=== PATIENT | male | born 1985 | race Caucasian/White ===

== ENCOUNTER 2020-02-02 14:52 | Emergency (ER) | payer MEDICAID, SELFPAY ==
--- NOTE | 2020-02-02 15:00 | ED.URI ---
HPI - URI/Sore Throat General Chief Complaint: Upper Respiratory Infection Stated Complaint: upper respiratory infection Time Seen by Provider: 02/02/20 15:03 Source: patient and RN notes reviewed Mode of arrival: ambulatory Limitations: no limitations History of Present Illness HPI Narrative: 34-year male presents with concern for 7-day history of nasal congestion, rhinorrhea with green discharge. Reports 1 week history of headache. Denies cough, sore throat, ear pain, body aches, chills, fever. Reports trying Benadryl and Tylenol. MD elicited complaint: nasal congestion Related Data Allergies Allergy/AdvReac Type Severity Reaction Status Date / Time haloperidol Allergy Unknown Unknown Verified 01/05/18 08:51 trazodone Allergy Unknown Verified 06/08/15 18:28 Review of Systems Review of Systems: Narrative: CONSTITUTIONAL: Denies malaise, chills, sweats, or fever. EYES: Denies visual changes, redness, or discharge. ENT: Reports rhinorrhea, congestion, sinus pain. Denies otalgia and sore throat. CARDIOVASCULAR: Denies chest pain, palpitations, or edema. RESPIRATORY: Denies cough or dyspnea. GASTROINTESTINAL: Denies abdominal pain, nausea, vomiting, diarrhea SKIN: Denies rash or itching. MUSCULOSKELETAL: Denies myalgia. NEUROLOGIC: Reports headache. All systems reviewed & are unremarkable except as noted in HPI and below PMFSH Comments At time of signature, agree with nursing past medical, surgical, social and family history. There is no relevant family history pertinent to the presenting complaint Exam Narrative: Exam Narrative: GENERAL: Well-appearing, well-nourished, and in no acute distress. HEAD: Normocephalic EYES: PERRLA, conjunctivae clear ENT: Nares clear, turbinates edematous and erythematous, green discharge, sinus tenderness. Mucous membranes moist. TM pearly sterling with dull light reflex bilaterally; no tragal tenderness. Oropharynx not erythematous without lesions. Tonsils not enlarged and without exudate, no drooling, no hoarseness, no trismus, uvula midline. NECK: Supple. No lymphadenopathy CHEST: Clear to auscultation, breath sounds equal. No wheezing, rhonchi, rales, or stridor. No respiratory distress, speaks in full sentences. HEART: Regular rate and rhythm. No murmur heard. SKIN: Warm, dry, no rash. NEURO: Alert and oriented x3. PSYCH: Normal mood and affect Course Course Emergency Course: Patient is aware of diagnosis, understands and agrees to treatment plan. Anticipatory guidance given. Patient agrees to follow-up as directed and is aware of reasons to seek care at the emergency department. Portions of this record may have been created with voice recognition software Vital Signs Vital signs: Vital Signs Temperature 99.1 F 02/02/20 15:03 Pulse Rate 57 L 02/02/20 15:03 Respiratory Rate 16 02/02/20 15:03 Blood Pressure 127/55 L 02/02/20 15:03 Pulse Oximetry 100 02/02/20 15:03 Temperature 99.1 F 02/02/20 15:03 Pulse Rate 57 L 02/02/20 15:03 Respiratory Rate 16 02/02/20 15:03 Blood Pressure 127/55 L 02/02/20 15:03 Pulse Oximetry 100 02/02/20 15:03 Reviewed. MDM - URI/Sore Throat MDM Narrative Medical decision making narrative: Differential diagnosis considered: Strep pharyngitis, allergic rhinitis, upper respiratory tract infection, sinusitis, rhinosinusitis, nasopharyngitis. viral pharyngitis, otitis media, otitis externa, pneumonia, bronchitis, viral cough syndrome, viral syndrome, and influenza. Exam findings show no acute concerns or changes; patient is non-toxic appearing and is in no distress. Patient is appropriate for outpatient treatment and follow-up. Critical Care Time Critical Care Time Critical Care Time: No Discharge Plan Discharge Clinical Impression: Acute bacterial sinusitis Patient Disposition: Home, Self-Care Condition: Stable Instructions: Antibiotic Form, Sinusitis (ED) Additional Instructions: Take medications as prescribed
[2020-02-02 15:03] VITALS: BP 127/55; PULSE 57; RESP 16; TEMP 37.3; O2SAT 100
== END 2020-02-02 15:17 | disposition home or self-care (01) ==
PROVIDERS: Emergency Provider Nurse Practitioner
DX: J01.80 Other acute sinusitis (principal); B96.89 Other specified bacterial agents as the cause of diseases classified elsewhere
CPT/HCPCS: 99213; G0463

== ENCOUNTER 2020-02-23 17:20 | Emergency (ER) | payer OTHER, SELFPAY ==
[2020-02-23 17:27] VITALS: BP 138/62; PULSE 67; RESP 16; TEMP 37.3; O2SAT 99
--- NOTE | 2020-02-23 17:28 | ED.URI ---
HPI - URI/Sore Throat General Chief Complaint: Upper Respiratory Infection Stated Complaint: Sinus Infection Time Seen by Provider: 02/23/20 17:29 Source: patient and RN notes reviewed Mode of arrival: ambulatory Limitations: no limitations History of Present Illness HPI Narrative: This is a 34 years old male presents to the office for an evaluation possible sinus infection. He said that his symptom has not changes for the last 2 to 3 weeks even with prescribed medication. His symptom has also not worsening since the beginning of the onset. He admits taking his medication as prescribed. He smoke about half a pack a day. Denies sick contact. He was seen here with similar symptoms about three weeks ago. HPI - URI/Sore Throat General Chief Complaint: Upper Respiratory Infection Stated Complaint: upper respiratory infection Time Seen by Provider: 02/02/20 15:03 Source: patient and RN notes reviewed Mode of arrival: ambulatory Limitations: no limitations History of Present Illness HPI Narrative: 34-year male presents with concern for 7-day history of nasal congestion, rhinorrhea with green discharge. Reports 1 week history of headache. Denies cough, sore throat, ear pain, body aches, chills, fever. Reports trying Benadryl and Tylenol. MD elicited complaint: nasal congestion Related Data Allergies Allergy/AdvReac Type Severity Reaction Status Date / Time haloperidol Allergy Unknown Unknown Verified 01/05/18 08:51 trazodone Allergy Unknown Verified 06/08/15 18:28 Review of Systems Review of Systems: Narrative: CONSTITUTIONAL: Denies fever, chills ENT:Reports sinus headache, nasal drainage with green discharge and throat pain. Denies ears pain. CARDIOVASCULAR: Denies chest pain RESPIRATORY: Denies dyspnea, cough GASTROINTESTINAL: Denies abdominal pain, nausea, vomiting SKIN: Denies rash MUSCULOSKELETAL: Denies acute back pain NEUROLOGIC: Denies lightheaded All other systems reviewed are negative, except as documented in HPI. PMFSH Social History Social History (Updated 02/23/20 @ 17:49 by GINGER Win) Social History: he is motivating to quite. Smoking status: Current every day smoker Comments At time of signature, I agree with nursing past medical, surgical, social and family history. There is no relevant family history pertinent to the presenting complaint. Exam Narrative: Exam Narrative: GENERAL: This is a well-nourished, well-developed patient, in no apparent distress. EARS: External ears normal, auditory canals clear and without drainage, TMs normal without perforation. Hearing grossly intact. NOSE: External nose normal with no obvious nasal discharge, nares appears erythema and edematous. THROAT: Mucous membranes moist, posterior pharynx note erythema/edematous with drainage. NECK: Neck supple, non-tender without lymphadenopathy, masses or thyromegaly. CARDIOVASCULAR: Regular rate and rhythm without murmurs, gallops, or rubs. RESPIRATORY: Clear to auscultation. Breath sounds equal bilaterally. No wheezes, rales, or rhonchi. GASTROINTESTINAL: Abdomen soft, non-tender, nondistended. Bowel sounds are active. No hepato-splenomegaly, or palpable masses. No guarding. SKIN: warm, intact with no suspicious lesions or rash, good texture and turgor. NEURO: awake, alert, and oriented to person, place and time. There were no obvious focal neurologic abnormalities. Steady gait Travis Coma Scale Eye Opening: Spontaneous 4 [place] Coma Scale Motor: Obeys Commands 6 [place] Coma Scale Verbal: Oriented 5 Course Vital Signs Vital signs: Vital Signs Temperature 99.2 F 02/23/20 17:27 Pulse Rate 67 02/23/20 17:27 Respiratory Rate 16 02/23/20 17:27 Blood Pressure 138/62 02/23/20 17:27 Pulse Oximetry 99 02/23/20 17:27 Temperature 99.2 F 02/23/20 17:27 Pulse Rate 67 02/23/20 17:27 Respiratory Rate 16 02/23/20 17:27 Blood Pressure 138/62 02/23/20 17:27 Pulse Oximetry 99 07
== END 2020-02-23 17:48 | disposition home or self-care (01) ==
PROVIDERS: Emergency Provider Nurse Practitioner
DX: J01.11 Acute recurrent frontal sinusitis (principal); F17.200 Nicotine dependence, unspecified, uncomplicated
CPT/HCPCS: 99213; G0463

== ENCOUNTER 2020-04-01 17:16 | Emergency (ER) | payer OTHER, SELFPAY ==
[2020-04-01 17:28] VITALS: BP 116/67; PULSE 71; RESP 16; TEMP 36.7; O2SAT 98
--- NOTE | 2020-04-01 17:36 | ED.GENADULT ---
HPI - General Adult General Chief complaint: Dental/Oral Stated complaint: tooth pain Time Seen by Provider: 04/01/20 17:36 Source: patient and RN notes reviewed Mode of arrival: ambulatory Limitations: no limitations History of Present Illness HPI narrative: 28-year-old male presents with complaints of left upper dental pain for the past 3 days. Tylenol and Anbesol gel with little to no relief. Denies any drainage. No fever. No jaw swelling. No neck swelling. No limitation with speaking or swallowing. Has history of dental caries. Has not seen a dentist recently. No dental trauma. No oral lesions. Exacerbating factors consist of chewing on eating and drinking cold items. Some relieving factors not eating on LT side and avoiding cold items. No dentures or bridges. Tolerating liquids well. The patient reports he have not been diagnosed with COVID-19. The patient reports he is not waiting for the results of a COVID-19 lab test. The patient reports he do not have fever, chills, weakness, fatigue, myalgia, or facial swelling. The patient reports he do not have a new or worsening cough or shortness of breath. Denies chest pain. The patient reports he do not have any rhinorrhea, congestion, sore throat, nausea, loss of taste, vomiting, abdominal pain, and diarrhea. Denies recent traveling. Denies concerns for COVID-19 or exposures been home with limited outdoor exposure except for essential household needs and return home. At this time, patient is not suspected of having COVID-19. Some parts of this dictation were generated by voice recognition software and may contain typographical and/or grammatical inaccuracies. Related Data Allergies Allergy/AdvReac Type Severity Reaction Status Date / Time haloperidol Allergy Unknown Unknown Verified 04/01/20 17:30 trazodone Allergy Unknown Stopped Verified 04/01/20 17:30 Breathing Review of Systems Review of Systems: Narrative: CONSTITUTIONAL: Denies fever, chills, sweats. EYES: Denies visual changes, redness, discharge. ENT: Denies rhinorrhea, congestion, sore throat, otalgia. Complains of LT upper dental pain. CARDIOVASCULAR: Denies chest pain, palpitations, edema. RESPIRATORY: Denies dyspnea, wheezing, cough. GASTROINTESTINAL: Denies abdominal pain, nausea, vomiting, diarrhea. GENITOURINARY: Denies dysuria, hematuria, abnormal discharge. SKIN: Denies rash or itching. MUSCULOSKELETAL: Denies acute back pain, joint pain, or myalgia. NEUROLOGIC: Denies numbness or focal weakness. PSYCHIATRIC: Denies anxiety or depression. All systems reviewed & are unremarkable except as noted in HPI and below. [facility] Past Medical History Medical History (Updated 04/07/20 @ 14:02 by GINGER Jenkins) Nicotine abuse Substance abuse in remission Surgical History Surgical History (Updated 04/07/20 @ 14:02 by GINGER Jenkins) No significant past surgical history Family History Family History (Updated 04/07/20 @ 14:05 by GINGER Jenkins) Father Rheumatoid arthritis Mother Leukemia Social History Social History (Updated 04/07/20 @ 14:07 by GINGER Jenkins) Social History: he is motivating to quite. Smoking status: Current every day smoker Tobacco type: e-cigarettes/vaping Alcohol intake: former Substance use: former Substance use type: opiates Living arrangements: with family Occupation/Education: unemployed Gender identity (if verbalized by the patient): Male Sexual Orientation (if Verbalized by the Patient): Straight or Heterosexual Comments At time of signature, agree with nurse past medical, surgical, social, and family history. There is no relevant family history pertinent to the presenting complaint. Exam Narrative: Exam Narrative: GENERAL: This is a well-nourished, well-developed patient, in no apparent distress. Talks in full sentences ans ambulates with steady gait without dyspnea. HEAD: normoceph
== END 2020-04-01 17:49 | disposition home or self-care (01) ==
PROVIDERS: Emergency Provider Nurse Practitioner Family
DX: K02.9 Dental caries, unspecified (principal); K08.89 Other specified disorders of teeth and supporting structures; F17.200 Nicotine dependence, unspecified, uncomplicated
CPT/HCPCS: 99213; G0463

== ENCOUNTER 2025-01-25 15:50 | Emergency (ER) | payer OTHER, SELFPAY ==
[2025-01-25 16:01] VITALS: BP 134/72; PULSE 63; RESP 18; TEMP 37; O2SAT 99
--- NOTE | 2025-01-25 16:03 | ED_ITS ---
HPI - General Adult General Chief complaint: Eye Problems Stated complaint: Eye Irritation Source: patient Mode of arrival: ambulatory Limitations: no limitations History of Present Illness HPI narrative: Patient presents for evaluation of left eye irritation for the last 2 days. He was weed eating two days ago at which time a foreign object hit him in the left eye. He has noticed irritation in left eye since that time. Denies any pruritus, pain, discharge or change in vision. He does not wear glasses or contacts. Related Data Home Medications ?Medication ?Instructions ?Recorded ?Confirmed ?Last Taken ?Type prasterone (DHEA) 50 mg capsule 50 mg PO DAILY 01/25/25 Unknown History (DHEA) testosterone (AndroGel) 20.25 mg topical DAILY 01/25/25 Unknown History Allergies Allergy/AdvReac Type Severity Reaction Status Date / Time haloperidol Allergy Unknown Unknown Verified 01/25/25 16:06 trazodone Allergy Unknown Stopped Verified 01/25/25 16:06 Breathing Review of Systems Review of Systems: CONSTITUTIONAL: Denies fever, chills, or sweats. EYES: reports left eye irritation. Denies visual changes, pain, itching, redness, or discharge. ENT: Denies rhinorrhea, congestion, sore throat, or otalgia. CARDIOVASCULAR: Denies chest pain, palpitations, or edema. RESPIRATORY: Denies cough or dyspnea. GASTROINTESTINAL: Denies abdominal pain, nausea, vomiting, or diarrhea. GENITOURINARY: Denies dysuria or hematuria. SKIN: Denies rash or itching. MUSCULOSKELETAL: Denies back pain, joint pain, or myalgia. NEUROLOGIC: Denies headache, numbness, dizziness, or weakness. PSYCHIATRIC: Denies anxiety or depression. [facility] Past Medical History Medical History Nicotine abuse Substance abuse in remission Surgical History Surgical History No significant past surgical history Family History Family History Father Rheumatoid arthritis Mother Leukemia Social History Social History Social History: he is motivating to quite. Smoking status: Current every day smoker Tobacco type: e-cigarettes/vaping Alcohol intake: former Substance use: former Substance use type: opiates Living arrangements: with family Occupation/Education: unemployed Gender identity (if verbalized by the patient): Male Sexual Orientation (if Verbalized by the Patient): Straight or Heterosexual Exam Narrative: GENERAL: Well-appearing, well-nourished, and in no acute distress. HEAD: Normocephalic, atraumatic. EYES: PERRLA and EOMI. There is tearing from the left eye. There is an area of dye uptake at the 9 o'clock position of the left eye when evaluated with fluorescein and Wood's lamp. There is no visible foreign body present in the eye ENT: Nares clear, no rhinorrhea or epistaxis. Mucous membranes moist. Oropharynx without tonsillar hypertrophy exudate or other lesions. Bilateral TMs pearly sterling nonbulging NECK: Supple. No adenopathy or masses. No carotid bruits or JVD CHEST: Clear to auscultation. No respiratory distress. No wheezes rales or rhonchi HEART: Regular rate and rhythm. No murmur heard. Normal peripheral pulses. ABDOMEN: Soft, nontender, nondistended, normal active bowel sounds. EXTREMITIES: Normal range of motion. No edema. SKIN: Warm, dry, no rash. NEURO: No focal deficits. Alert and oriented x3. PSYCH: Normal mood and affect. Course Course Emergency Course: This is a 39-year-old male who presented for evaluation of left eye irritation. With Wood's lamp evaluation corneal abrasion was visualized without foreign body present. Will discharge with erythromycin. Follow-up primary care provider and ophthalmology. Go to the emergency department for change in vision. Patient in agreement with plan of care Level of Care: Express Care Visit Vital Signs Vital signs: Vital Signs Temperature 37.0 C 01/25/25 16:01 Pulse Rate 63 01/25/25 16:01 Respiratory Rate 18 01/25/25 16:01 Blood Pressure 134/72 01/25/25 16:01 Pulse Oximetry 99 01/25/25 16:01 Oxygen Delivery Room Air 01/25/25 16:01 Temperature 37.0 C 01/25/25 16:01 Pulse Rate 63 01/25/25 16:01 Respiratory Rate 18 01/25/25 16:01 Blood Pressure 134/72 01/25/25 16:01 Pulse Oximetry 99 01/25/25 16:01 Oxygen Delivery Room Air 01/25/25 16:01 Medical Decision Making Vital Signs Vital Signs: Vital Signs Temperature 37.0 C 01/25/25 16:01 Pulse Rate 63 01/25/25 16:01 Respiratory Rate 18 01/25/25 16:01 Blood Pressure 134/72 01/25/25 16:01 Pulse Oximetry 99 01/25/25 16:01 Oxygen Delivery Room Air 01/25/25 16:01 Temperature 37.0 C 01/25/25 16:01 Pulse Rate 63 01/25/25 16:01 Respiratory Rate 18 01/25/25 16:01 Blood Pressure 134/72 01/25/25 16:01 Pulse Oximetry 99 01/25/25 16:01 Oxygen Delivery Room Air 01/25/25 16:01 Discharge Plan Discharge Clinical Impression: Abrasion of cornea, left Patient Disposition: Home Condition: Stable Instructions: Antibiotic Form, Corneal Abrasion (ED) Patient Language: Citizen Of [place] Prescriptions: New erythromycin 5 mg/gram (0.5 %) ointment 1 applic EACH EYE 6XD 7 Days Qty: 3.5 0RF No Action testosterone [AndroGel] 20.25 mg/1.25 gram (1.62 %) gel in metered-dose pump 20.25 mg topical DAILY Rx Instructions: apply 1 pump amount over max area of ONE upper arm and shoulder DHEA 50 mg capsule 50 mg PO DAILY Follow-up/Referrals: [facility] [place] [Outside] Maikel Joseph MD [Physician] - Time of Disposition: 16:19
== END 2025-01-25 16:21 | disposition home or self-care (01) ==
PROVIDERS: Emergency Provider Nurse Practitioner
DX: S05.02XA Injury of conjunctiva and corneal abrasion without foreign body, left eye, initial encounter (principal); F17.290 Nicotine dependence, other tobacco product, uncomplicated; W22.8XXA Striking against or struck by other objects, initial encounter
CPT/HCPCS: 99213; A9270; G0463